=== PATIENT | male | born 1985 | race Hispanic/Latino ===

== ENCOUNTER 2017-01-12 20:38 | Emergency (ER) | payer SELFPAY ==
[~2017-01-12] VITALS: Ht 165.1 cm; Wt 76.8 kg
[2017-01-12 20:51] VITALS: BP 159/102; PULSE 113; RESP 20; O2SAT 99
[2017-01-12 22:23] LABS: BASOPHILS % (AUTO) 0.5 % (0-3); EOSINOPHILS % (AUTO) 2.8 % (0-5); MONOCYTES % (AUTO) 6.7 % (4-12); Mean Corpuscular Hemoglobin 29.5 pg (27.0-35.0); Mean Corpuscular Volume 83.2 fL (81-100); NEUTROPHILS % (AUTO) 53.8 % (40-74); Platelet Count 314 bil/L (150-400)
--- NOTE | 2017-01-12 22:25 | ED.REPORT ---
HPI-General Illness Date of Service Jan 12, 2017 ED Provider: Simone Castañeda MD Pt is a 31 y/o male w/ a hx of NIDDM presenting to the ED c/o dizziness and bilateral blurred vision onset 1 month ago. The patient seems sedated and is somnolent during the exam therefore history is limited. He denies any drug use. He told the nurse on arrival that he has been taking his girlfriend's morphine medication and that he has been fatigued for 1 month. He also stated that he was diagnosed with pneumonia 1 week ago but has not been taking them because he lost them. Further history unavailable secondary to mental status. Nursing Notes Stated Complaint: LOSING EYESIGHT/SUGAR LEVELS UNSTABLE Chief Complaint: General Complaint Nursing Notes Reviewed: Yes Allergies: Coded Allergies: No Known Allergies (Verified Allergy, Unknown, 03/27/14) No Active Prescriptions or Reported Meds General Time Seen by MD: 22:23 Chief Complaint Dizziness Hx Obtained From: Patient Arrived By: Walk-in Onset Occurred: Onset unknown Past Medical History Past Medical History Hypertension NIDDM Past Surgical History Denies Family History noncontributory Smoking History Current Every Day Smoker Social History Alcohol Use: Denies alcohol use Other Social History: Local resident Ambulatory Status Independent Review of Systems Unable to Obtain ROS Mental status Full Review of Systems Eyes: Reports: Blurred bilateral Neurologic: Reports: Dizziness Complete sys rev & neg: except as marked. Physical Exam Vital Signs Vital Signs Date Time Temp Pulse Resp B/P Pulse Ox O2 Delivery O2 Flow Rate FiO2 01/12/17 23:15 83 12 114/63 96 Room Air 01/12/17 20:51 36.8 113 20 159/102 99 Initial VS: Reviewed, Vital signs abnormal Head / Eyes: Atraumatic, Normocephalic, PERRL ENT: Mucous membranes moist, Conjunctiva normal, No scleral icterus Neck: Supple, Full range of motion Respiratory: Breath sounds normal, Clear to auscultation, No respiratory distress Cardiovascular: Regular rate & rhythm, Heart sounds normal, Intact distal pulses Abdomen / GI: Soft, Non-tender Skin: Warm, Dry, No cyanosis Psychiatric: Mood/affect normal, Behavior normal, Normal thought content General/Constitutional: Alert, No acute distress Alertness: Positive: Sleeping but arousable Neurologic: No motor deficits Appears sedated and somnolent Speech is slurred Opens eyes to voice Answers some questions Interpretation & Diagnostics Lab Results Interpretation Result Diagram: 01/12/17220701/12/17 220 Test 01/12/17 22:08 01/13/17 01:35 White Blood Count 10.3th/mm3 (3.8-10.1) Red Blood Count 5.19mil/mm3 (4.40-5.80) Hemoglobin 15.3g/dL (13.8-17.2) Hematocrit 43.2% (41.0-50.0) Mean Corpuscular Volume 83.2fL (81-100) Mean Corpuscular Hemoglobin 29.5pg (27.0-35.0) Mean Corpuscular Hemoglobin Concent 35.4% (32.0-37.0) Red Cell Distribution Width 12.9% (12.3-15.4) Platelet Count 314bil/L (150-400) Neutrophils (%) (Auto) 53.8% (40-74) Lymphocytes (%) (Auto) 36.0% (14-46) Monocytes (%) (Auto) 6.7% (4-12) Eosinophils (%) (Auto) 2.8% (0-5) Basophils (%) (Auto) 0.5% (0-3) Sodium Level 137mEq/L (134-144) Potassium Level 4.7mEq/L (3.5-5.2) Chloride Level 97mEq/L (97-108) Carbon Dioxide Level 27mmol/L (18-29) Blood Urea Nitrogen 12mg/dL (6-20) Creatinine 0.71mg/dL (0.76-1.27) Estimat Glomerular Filtration Rate 138mL/min (>59) Glucose Level 242mg/dL (60-99) Calcium Level 9.6mg/dL (8.5-10.1) Magnesium Level 1.9mg/dL (1.6-2.6) Total Bilirubin 0.4mg/dL (0.0-1.2) Aspartate Amino Transf (AST/SGOT) 16U/L (0-50) Alanine Aminotransferase (ALT/SGPT) 22U/L (0-44) Alkaline Phosphatase 116U/L (25-150) Total Protein 8.1g/dL (6.4-8.4) Albumin 4.5g/dL (3.4-5.0) Hold Gilman Top Tube Received (Received) Hold Urine Received (Received) Lab Results Interpretation: Utox positive for: meth, opiates, oxycodone, amphetamines X-Ray Chest Interpretation View: Portable, 1 view Interpretation / Wet Read by: Wet read ED physician IVETT X-Ray Chest Findings: No infiltrate, No acute disease CT Head Interpretation Conclusion: No acute intracranial abnormality. Radiologist: Saul Donovan Study: Head CT no contrast Interpretation / Wet Read by: Interpret - Radiologist Re-Eval/Medical Decision Med Decision/Clinical Course 31-year-old male presenting complaining of dizziness. He reports he took several of his girlfriend's MS Contin earlier today. While he was being observed he had excessively more somnolent. Observed over 5 hours and his somnolence resolved. He then woke up and was ambulatory, tolerated by mouth and was alert and oriented. His urine tox was positive for methamphetamines, opiates. CT brain was obtained while he was altered which was normal. His labs are unremarkable. Patient passed a road test and was stable for discharge home. Recommend follow-up primary doctor. Time of Eval: 01:13 Re-Evaluation/Progress Note: Pt rechecked. He is still quite sedated. His girlfriend provides more history. Urine has not been obtained. Time of Eval: 01:41 Re-Evaluation/Progress Note: Pt rechecked. After Narcan was administered, he is now alert and appropriate for discharge. Urine tox is positive. Informed pt of plan for treatment. Pt understands and agrees with plan for treatment. F/U instructions and RTER warnings given. All questions addressed. Counseled Regarding: Diagnosis, Lab results, Need for follow-up, When/why to return to ED Discharge & Departure Primary Impression: Polysubstance abuse Disposition: Home Discharge Condition All VS Reviewed: Yes Condition: Stable Additional Instructions: Stop using drugs. They caused you to be very sedated today which can become very dangerous and sometimes causes . Follow-up with a primary care doctor on Saturday. You can go to the [facility] or [facility]. Referrals: [facility] Scribe Attestation Portions of this note were transcribed by Naeem Molina. I, Dr. Castañeda, personally performed the history, physical exam and medical decision-making; I reviewed and confirmed the accuracy of the information in the transcribed note. Signed by Mandy Shukla, 01/12/17 - 2319 Simone Castañeda MD Jan 12, 2017 22:25 NAEEM MOLINA Jan 12, 2017 23:12
[2017-01-12 22:45] LABS: Magnesium 1.9 mg/dL (1.6-2.6)
[2017-01-12 23:15] VITALS: BP 114/63; PULSE 83; RESP 12; O2SAT 96
[2017-01-13 03:10] VITALS: BP 126/77; PULSE 101; RESP 16; O2SAT 100
--- NOTE | 2017-01-13 08:09 | DRSVH ---
PROCEDURE: X-RAY CHEST ONE VIEW, PORTABLE ([id number]) INDICATIONS: cough TECHNIQUE: One view of the chest was acquired. COMPARISON: None. FINDINGS: Surgical changes and devices: None. Lungs and pleura: No pleural effusions or pneumothorax. Lungs are clear. Mediastinum: Mediastinal contours appear normal. Heart size is normal. Bones and chest wall: No suspicious bony lesions. Overlying soft tissues appear unremarkable. IMPRESSION: No acute cardiopulmonary findings. Dictated by: Sherri Driver M.D. on 01/13/2017 at 8:07 Approved by: Sherri Driver M.D. on 01/13/2017 at 8:08
--- NOTE | 2017-01-13 08:09 | DRSVH ---
PROCEDURE: CT BRAIN WITHOUT CONTRAST ([id number]) INDICATIONS: altered mental status TECHNIQUE: Noncontrast 4.5 mm thick angled axial sections acquired from the foramen magnum to the vertex, with c oronal reformats. COMPARISON: None. FINDINGS: Image quality: Excellent. CSF spaces: Basal cisterns are patent. No extra-axial fluid collections. Ventricles are normal in size and shape. Brain: No midline shift. No intracranial masses or hemorrhage. Brown-white matter interface is norm al. Skull and face: Calvarium and visualized facial bones are intact, without suspicious lesions. Sinuses: Visualized sinuses and mastoids are clear. IMPRESSION: No acute intracranial findings. These findings are concordant with the overnight interpretation. Dictated by: Sherri Driver M.D. on 01/13/2017 at 8:05 Approved by: Sherri Driver M.D. on 01/13/2017 at 8:07
== END 2017-01-13 03:25 | disposition home or self-care (01) ==
LOC: SED 20:38
DX: F19.10 Other psychoactive substance abuse, uncomplicated (principal); I10 Essential (primary) hypertension; E11.9 Type 2 diabetes mellitus without complications; F17.200 Nicotine dependence, unspecified, uncomplicated